=== PATIENT | male | born 1980 ===

== ENCOUNTER 2018-02-18 09:12 | Emergency (ER) | payer OTHER ==
--- NOTE | 2018-02-18 09:41 | ED PDOC ---
Arrival/HPI - General Time Seen by Provider: 02/18/18 09:38 Historian: Patient - History of Present Illness Narrative History of Present Illness (Text): 02/18/18 09:38 38-year-old male presents today with right hand and wrist pain status post fall. Patient states 4 days ago he fell off of a ladder injuring his right hand and wrist. Patient states he also has slight pain to the right lateral ribs. Patient denies chest pain or shortness of breath. Patient states he only has a pain with palpation. He denies any difficulty breathing. He denies abdominal pain. No nausea vomiting diarrhea constipation. Patient denies back or neck pain. Patient denies numbness weakness or tingling in the extremities. Patient states the majority of the pain is in his right hand and wrist. Patient states he is full range of motion of the hand and wrist but has difficulty trying to lift anything up. no medications have been taken for pain. Time/Duration: Other ( 4 days ago) Past Medical History - Provider Review Nursing Documentation Reviewed: Yes - Travel History Have you recently traveled outside [place] w/in the past 3 mons?: No - Tetanus Immunization Tetanus Immunization: Unknown Family/Social History - Physician Review Nursing Documentation Reviewed: Yes Family/Social History: Unknown Family HX Smoking Status: Never Smoked Hx Alcohol Use: No Hx Substance Use: No Allergies/Home Meds Allergies/Adverse Reactions: Allergies No Known Allergies Allergy (Verified 02/18/18 09:31) Review of Systems - Review of Systems Constitutional: absent: Fatigue, Fevers Respiratory: absent: SOB, Cough Cardiovascular: absent: Chest Pain, Palpitations Gastrointestinal: absent: Abdominal Pain, Constipation, Diarrhea, Nausea, Vomiting, Appetite Changes Musculoskeletal: Arthralgias (right hand/wrist pain, right lateral rib pain). absent: Back Pain, Neck Pain Skin: absent: Rash, Pruritis Neurological: absent: Headache, Dizziness Psychiatric: absent: Anxiety, Depression, Suicidal Ideation Physical Exam Vital Signs Reviewed: Yes Temperature: Afebrile Blood Pressure: Normal Pulse: Regular Respiratory Rate: Normal Appearance: Positive for: Well-Appearing, Non-Toxic, Comfortable Pain Distress: None Mental Status: Positive for: Alert and Oriented X 3 - Systems Exam Head: Present: Atraumatic Mouth: Present: Moist Mucous Membranes Neck: Present: Normal Range of Motion, Trachea Midline. No: MIDLINE TENDERNESS, Paraspinal Tenderness Respiratory/Chest: Present: Clear to Auscultation, Good Air Exchange, Tender to Palpation (+ ttp over right lateral ribs;no step offs or crepitus, no edema, no erythema, no ecchymosis ). No: Respiratory Distress, Accessory Muscle Use Cardiovascular: Present: Regular Rate and Rhythm Abdomen: Present: Normal Bowel Sounds. No: Tenderness, Distention, Peritoneal Signs, Rebound, Guarding Back: Present: Normal Inspection. No: Midline Tenderness, Paraspinal Tenderness Upper Extremity: Present: Normal ROM, NORMAL PULSES, Tenderness (right hand/wrist; + ttp over snuff box, + ttp volar aspect of wrist; + edema, + ecchymosis, full rom of hand and wrist with pain. no proximal tenderness, full rom of elbow. right shoulder; + ttp over lateral aspect of shoulder; full rom , no edema, no erythema; no ecchymosis. ), Swelling, Neurovascularly Intact, Capillary Refill < 2s Lower Extremity: Present: Normal ROM, Tenderness (right hip; + ttp over lateral aspect of hip with 5x2 area of ecchymosis noted to the lateral aspect at greater trochanter. ) Neurological: Present: GCS=15, Speech Normal Skin: Present: Warm, Dry, Normal Color. No: Rashes Psychiatric: Present: Alert, Oriented x 3 Medical Decision Making ED Course and Treatment: 02/18/18 09:54 38yr old male presents today s/p fall 6 feet off ladder 4 days ago. cbc; wnl cmp;wnl headct: FINDINGS: HEMORRHAGE: No intracranial hemorrhage. BRAIN: No mass effect or edema. No atrophy or chronic microvascular ischemic changes. VENTRICLES: Unremarkable. No hydrocephalus. CALVARIUM: Unremarkable. PARANASAL SINUSES: 2 centimeter retention cyst/polyp in the right maxillary sinus. MASTOID AIR CELLS: Unremarkable as visualized. No inflammatory changes. OTHER FINDINGS: None. IMPRESSION: No hemorrhage. chest/abd pelvis CT: FINDINGS: CT CHEST WITH CONTRAST: LUNGS: Clear. No nodule, mass or consolidation. MEDIASTINUM: Unremarkable. Normal caliber aorta and pulmonary arterial trunk. No aortic dissection. Normal size heart. LYMPH NODES: Multiple nonspecific prominent mediastinal lymph nodes with fatty eladio suggesting benignity. Recommend follow-up. PLEURA: Unremarkable. No pneumothorax. No pleural fluid. BONES: Unremarkable. OTHER FINDINGS: None. CT ABDOMEN AND PELVIS: LIVER: Unremarkable. No gross lesion or ductal dilatation. GALLBLADDER AND BILE DUCTS: Unremarkable. PANCREAS: Unremarkable. No gross lesion or ductal dilatation. SPLEEN: Unremarkable. ADRENALS: Unremarkable. No mass. KIDNEYS AND URETERS: Unremarkable. No hydronephrosis. No solid mass. VASCULATURE: No aortic atherosclerotic calcification or mural plaque present. Unremarkable. No aortic aneurysm. BOWEL: Unremarkable. No obstruction. No gross mural thickening. APPENDIX: Normal appendix. PERITONEUM: Unremarkable. No free fluid. No free air. LYMPH NODES: Unremarkable. No enlarged lymph nodes. BLADDER: Unremarkable. REPRODUCTIVE: Unremarkable. BONES: No acute fracture. OTHER FINDINGS: Mild infiltration of central abdominal mesenteric fat compatible with mild panniculitis. IMPRESSION: Multiple nonspecific prominent mediastinal lymph nodes with fatty eladio suggesting benignity. Recommend follow-up. Mild infiltration of central abdominal mesenteric fat compatible with mild panniculitis. No fracture. right hand xray X-ray of right hand reviewed by radiologist, shows: FINDINGS: BONES: Normal. No fracture. JOINTS: Normal. No dislocation. SOFT TISSUES: Normal. OTHER FINDINGS: There is a nondisplaced transverse fracture of the ulnar styloid and a longitudinally oriented nondisplaced fracture of the distal radius extending into the articular surface. IMPRESSION: Negative study right wrist xray X-ray of right wrist reviewed by radiologist, shows: FINDINGS: BONES: There is a nondisplaced transverse fracture of the ulnar styloid and a longitudinally oriented nondisplaced fracture of the distal radius extending into the articular surface. JOINTS: Normal. No dislocation. SOFT TISSUES: Normal. OTHER FINDINGS: None. IMPRESSION: There is a nondisplaced transverse fracture of the ulnar styloid and a longitudinally oriented nondisplaced fracture of the distal radius extending into the articular surface. right shoulder xray X-ray of right shoulder reviewed by radiologist, shows: FINDINGS: BONES: Normal. No fracture. JOINTS: Normal. Glenohumeral and acromioclavicular joints preserved. No osteoarthritis. SOFT TISSUES: Normal. OTHER FINDINGS: None. IMPRESSION: Normal radiographs of the right shoulder. right hip xray X-ray of Hip/Pelvis reviewed by radiologist, shows: FINDINGS: BONES: Normal. No fracture. JOINTS: Normal. SOFT TISSUES: Normal. OTHER FINDINGS: None. IMPRESSION: Negative study 02/18/18 12:[address] jarvis; discussed xray results in depth; he advised sugar tong splint and thumb spica and f/u in the office tomorrow. call for appointment. I discussed all results in depth with the patient advised follow-up with the orthopedist tomorrow. Advised the patient of CAT scan findings of panniculitis and need for follow-up with the GI doctor. Advised immediate return if symptoms worsen persist or if new concerning symptoms develop Patient verbalizes understanding of discharge instructions and need for immediate followup. all aspects of this case were discussed the attending of record. Impression: Wrist fracture, trauma, panniculitis Motrin every 6 hours as needed for pain Increase fluids Follow-up with the orthopedist tomorrow for your wrist fracture Follow-up with the GI specialist within the next 2 days Return immediately if symptoms worsen persist or if new concerning symptoms develop Reassessment Condition: Re-examined, Improved - RAD Interpretation [employer] Operator: Radiologist Procedures - Splinting Location: right wrist Hand-Made Type: fiberglass Splint: sugar-tong (sugar tong and thumb spica applied.) Pre-Proc Neuro Vasc Exam: normal Post-Proc Neuro Vasc Exam: normal Disposition/Present on Arrival - Present on Arrival Any Indicators Present on Arrival: No History of DVT/PE: No History of Uncontrolled Diabetes: No Urinary Catheter: No History of Decub. Ulcer: No - Disposition Have Diagnosis and Disposition been Completed?: Yes Diagnosis: Wrist fracture, Fall, Panniculitis Disposition: HOME/ ROUTINE Disposition Time: 12:42 Patient Plan: Discharge Condition: GOOD Discharge Instructions (ExitCare): Wrist Fracture (DC) Additional Instructions: Motrin every 6 hours as needed for pain Increase fluids Follow-up with the orthopedist tomorrow for your wrist fracture Follow-up with the GI specialist within the next 2 days Return immediately if symptoms worsen persist or if new concerning symptoms develop Prescriptions: Ibuprofen [Motrin] 600 mg PO Q6H PRN #20 tab PRN Reason: pain/fever reduction Referrals: FAMILY PROVIDER,NO [Primary Care Provider] - Follow up with primary Srikanth Jarvis DO [Staff Provider] - Follow up with primary Lm Lyles MD [Staff Provider] - Follow up with primary [facility] [Outside] - Follow up with primary [facility] [Outside] - Follow up with primary Forms: WORK NOTE
[2018-02-18 10:10] LABS: BASO # 0.06 K/mm3 (0.0-2.0); BASO % 0.9 % (0.0-3.0); EOS # 0.4 (0.0-0.7); EOS % 6.7 % (1.5-5.0); GRAN # 3.72 (1.4-6.5); GRAN % 57.9 % (50.0-68.0); HEMOGLOBIN 15.8 g/dL (14.0-18.0); LYMPH # 1.8 (1.2-3.4); LYMPH % 28.1 % (22.0-35.0); MEAN CELL VOLUME 91.5 fl (80.0-105.0); MEAN PLATELET VOLUME 9.8 fl (7.0-11.0); MONO # 0.4 (0.1-0.6); MONO % 6.4 % (1.0-6.0); RBC 4.93 10^6/uL (3.5-6.1); RED CELL DISTRIBUTION WIDTH 12.3 % (11.5-14.5); WHITE BLOOD COUNT 6.4 10^3/uL (4.5-11.0)
[2018-02-18] MEDS ORDERED: Iohexol 350 MG/100 ML VIAL ONE (10:13)
[2018-02-18 10:19] LABS: ALB/GLOB RATIO 1.5 (1.1-1.8); ALBUMIN 4.7 g/dL (3.0-4.8); ALT/SGPT 35 U/L (7-56); AST/SGOT 36 U/L (17-59); BLOOD UREA NITROGEN 15 mg/dL (7-21); CALCIUM 9.5 mg/dL (8.4-10.5); GFR NON-AFRICAN AMERICAN > 60; INR 0.97; PARTIAL THROMBOPLASTIN TIME 35.3 Seconds (25.1-36.5); PROTHROMBIN TIME 11.2 SECONDS (9.4-12.5)
[2018-02-18 10:59] VITALS: BP 128/78; PULSE 72; RESP 16; TEMP 98.8; O2SAT 98
--- NOTE | 2018-02-18 11:35 | CT ---
Date of service: 02/18/2018 PROCEDURE: CT HEAD WITHOUT CONTRAST. HISTORY: fall off ladder COMPARISON: None available. TECHNIQUE: Axial computed tomography images were obtained through the head/brain without intravenous contrast. Radiation dose: Total exam DLP = 1026.5 mGy-cm. This CT exam was performed using one or more of the following dose reduction techniques: Automated exposure control, adjustment of the mA and/or kV according to patient size, and/or use of iterative reconstruction technique. FINDINGS: HEMORRHAGE: No intracranial hemorrhage. BRAIN: No mass effect or edema. No atrophy or chronic microvascular ischemic changes. VENTRICLES: Unremarkable. No hydrocephalus. CALVARIUM: Unremarkable. PARANASAL SINUSES: 2 centimeter retention cyst/polyp in the right maxillary sinus. MASTOID AIR CELLS: Unremarkable as visualized. No inflammatory changes. OTHER FINDINGS: None. IMPRESSION: No hemorrhage.
--- NOTE | 2018-02-18 11:45 | CT ---
Date of service: 02/18/2018 PROCEDURE: CT Chest, Abdomen and Pelvis with intravenous contrast HISTORY: trauma/ fall 6ft off ladder. COMPARISON: None available. TECHNIQUE: IV dose administered: Radiation dose: Total exam DLP = 933.57 mGy-cm. This CT exam was performed using one or more of the following dose reduction techniques: Automated exposure control, adjustment of the mA and/or kV according to patient size, and/or use of iterative reconstruction technique. FINDINGS: CT CHEST WITH CONTRAST: LUNGS: Clear. No nodule, mass or consolidation. MEDIASTINUM: Unremarkable. Normal caliber aorta and pulmonary arterial trunk. No aortic dissection. Normal size heart. LYMPH NODES: Multiple nonspecific prominent mediastinal lymph nodes with fatty eladio suggesting benignity. Recommend follow-up. PLEURA: Unremarkable. No pneumothorax. No pleural fluid. BONES: Unremarkable. OTHER FINDINGS: None. CT ABDOMEN AND PELVIS: LIVER: Unremarkable. No gross lesion or ductal dilatation. GALLBLADDER AND BILE DUCTS: Unremarkable. PANCREAS: Unremarkable. No gross lesion or ductal dilatation. SPLEEN: Unremarkable. ADRENALS: Unremarkable. No mass. KIDNEYS AND URETERS: Unremarkable. No hydronephrosis. No solid mass. VASCULATURE: No aortic atherosclerotic calcification or mural plaque present. Unremarkable. No aortic aneurysm. BOWEL: Unremarkable. No obstruction. No gross mural thickening. APPENDIX: Normal appendix. PERITONEUM: Unremarkable. No free fluid. No free air. LYMPH NODES: Unremarkable. No enlarged lymph nodes. BLADDER: Unremarkable. REPRODUCTIVE: Unremarkable. BONES: No acute fracture. OTHER FINDINGS: Mild infiltration of central abdominal mesenteric fat compatible with mild panniculitis. IMPRESSION: Multiple nonspecific prominent mediastinal lymph nodes with fatty eladio suggesting benignity. Recommend follow-up. Mild infiltration of central abdominal mesenteric fat compatible with mild panniculitis. No fracture.
--- NOTE | 2018-02-18 12:04 | RAD ---
Date of service: 02/18/2018 PROCEDURE: Radiographs of the Right Shoulder HISTORY: fall, shoulder pain COMPARISON: No prior. FINDINGS: BONES: Normal. No fracture. JOINTS: Normal. Glenohumeral and acromioclavicular joints preserved. No osteoarthritis. SOFT TISSUES: Normal. OTHER FINDINGS: None. IMPRESSION: Normal radiographs of the right shoulder.
--- NOTE | 2018-02-18 12:06 | RAD ---
Date of service: 02/18/2018 PROCEDURE: Right Wrist Radiographs. HISTORY: wrist pain s/p fall COMPARISON: None. FINDINGS: BONES: There is a nondisplaced transverse fracture of the ulnar styloid and a longitudinally oriented nondisplaced fracture of the distal radius extending into the articular surface. JOINTS: Normal. No dislocation. SOFT TISSUES: Normal. OTHER FINDINGS: None. IMPRESSION: There is a nondisplaced transverse fracture of the ulnar styloid and a longitudinally oriented nondisplaced fracture of the distal radius extending into the articular surface.
--- NOTE | 2018-02-18 12:07 | RAD ---
Date of service: 02/18/2018 PROCEDURE: Right Wrist Radiographs. HISTORY: right hand, wrist pain s/p fall COMPARISON: None. FINDINGS: BONES: Normal. No fracture. JOINTS: Normal. No dislocation. SOFT TISSUES: Normal. OTHER FINDINGS: There is a nondisplaced transverse fracture of the ulnar styloid and a longitudinally oriented nondisplaced fracture of the distal radius extending into the articular surface. IMPRESSION: Negative study
--- NOTE | 2018-02-18 12:08 | RAD ---
PROCEDURE: Right Hip and pelvis radiographs. HISTORY: fall, hip pain COMPARISON: None. FINDINGS: BONES: Normal. No fracture. JOINTS: Normal. SOFT TISSUES: Normal. OTHER FINDINGS: None. IMPRESSION: Negative study
== END 2018-02-18 13:22 | disposition home or self-care (01) ==
LOC: EDBD → UNMERGE 09:12 → MERGE 09:12 → ED 09:12
DX: S52.591A Other fractures of lower end of right radius, initial encounter for closed fracture (principal); S52.614A Nondisplaced fracture of right ulna styloid process, initial encounter for closed fracture; W11.XXXA Fall on and from ladder, initial encounter; Y92.9 Unspecified place or not applicable; M79.3 Panniculitis, unspecified
CPT/HCPCS: 70450; 71260; 73030; 73110; 73130; 73502; 74177; 80053; 85025; 85610; 85730; 96372; 99284; J1885; Q9967